=== PATIENT | female | born 1995 | race Caucasian/White ===

== ENCOUNTER → 2020-04-20 | Outpatient (CLI) | payer BC ==
--- NOTE | 2020-04-20 17:14 | RAD ---
EXAM: First Trimester OB Ultrasound INDICATION: Reason: VAGINAL BLEEDING IN / Spl. Instructions: / History: TECHNIQUE: Real-time first trimester obstetrical ultrasound was performed with permanent freeze-frame documentation. Transabdominal imaging was performed. COMPARISON: None. FINDINGS: GESTATIONAL SAC: Gestational sac shape and amniotic fluid volume within normal limits. POLE: Unremarkable. Yolk sac not seen. CROWN RUMP LENGTH: 1.2 cm HEART RATE: 150 bpm PLACENTA: Too early to adequately assess. MATERNAL UTERUS: Unremarkable. It measures 8.9 x 6.0 x 4.7 cm. MATERNAL ADNEXA: Normal ovaries. No adnexal mass. No pelvic free fluid AGE/DATES: Gestational Age by LMP: 7 weeks 6 days Gestational Age by US: 7 weeks and 3 days EDC by LMP: 12/01/2020 EDC by US: 12/04/2020 IMPRESSION: Normal viable first trimester OB ultrasound. Estimated gestational age of 7 weeks 3 days and EDC of 1 . Electronically signed by: Riley Stark MD (04/20/2020 5:12 PM) [id number]
== END ==
LOC: US 10:42
PROVIDERS: ATTEND Family Medicine
DX: O46.91 Antepartum hemorrhage, unspecified, first trimester (principal); Z3A.01 Less than 8 weeks gestation of pregnancy
CPT/HCPCS: 76801